=== PATIENT | male | born 1960 | race Caucasian/White ===

== ENCOUNTER 2020-07-04 21:22 | Emergency (ER) | payer OTHER ==
[2020-07-05] MEDS ORDERED: CYCLOBENZAPRINE10 MG PO (00:01)
[2020-07-05] MEDS ORDERED: TORADOL 10 MG T10 MG PO (00:19)
== END 2020-07-05 00:40 | disposition home or self-care (01) ==
LOC: ER1 21:22
DX: M54.5 Low back pain (principal); G89.29 Other chronic pain; I10 Essential (primary) hypertension; I25.10 Atherosclerotic heart disease of native coronary artery without angina pectoris; I25.2 Old myocardial infarction; F17.210 Nicotine dependence, cigarettes, uncomplicated; Z90.49 Acquired absence of other specified parts of digestive tract
CPT/HCPCS: 72070; 72100; 96372; 99283; J1885